=== PATIENT | female | born 1985 | race Caucasian/White ===

== ENCOUNTER 2023-09-24 16:07 | Outpatient (CLI) | payer OTHER, SELFPAY | END 2023-09-24 16:08 | disposition home or self-care (01) | PROVIDERS: PCP Nurse Practitioner Family; Visit Provider Nurse Practitioner Family | DX: N92.1 Excessive and frequent menstruation with irregular cycle (principal); Z13.29 Encounter for screening for other suspected endocrine disorder | CPT/HCPCS: 84443; 85025 ==

== ENCOUNTER 2023-09-30 15:47 | Outpatient (CLI) | payer OTHER, SELFPAY ==
--- NOTE | 2023-09-30 16:00 | CRLHL7_ITS ---
For Patients: As a result of the Century Cures Act, medical imaging exams and procedure reports are released immediately into your electronic medical record. You may view this report before your referring provider. If you have questions, please contact your health care provider. INDICATION: Menometrorrhagia COMPARISON: none TECHNIQUE: 2D fuller scale and color Doppler images were acquired of the pelvis using a transabdominal and transvaginal approach. FINDINGS: Sonographic images demonstrate a normal size and smooth outer contour of the uterus. Uterus measures 9.6 cm in length by 5.5 cm in AP diameter by 6.6 cm in transverse dimension. Small posterior uterine fibroid measures 1.6 x 1.2 x 1.8 cm. Essure devices are present. The endometrial lining appears normal and measures 6 mm in composite thickness. The right ovary measures 3.2 x 2.0 x 2.3 cm in size and the left ovary measures 4.6 x 3.0 x 3.0 cm. The ovaries demonstrate normal arterial and venous blood flow on color Doppler analysis. There are no suspicious fluid collections within the cul-de-sac. Simple cyst is present within the left ovary measuring 2.3 x 2.4 cm. IMPRESSION: Endometrial thickness 6 millimeters. No endometrial fluid. Small posterior intramural fibroid measuring 1.8 cm. Simple left ovarian cyst measuring 2.4 cm. No ovarian torsion or excess pelvic free fluid. Dictated by Jeff Whitaker MD @ 10/01/2023 1:24:25 PM (Electronically Signed)
== END 2023-09-30 15:48 | disposition home or self-care (01) ==
PROVIDERS: PCP Nurse Practitioner Family; Visit Provider Nurse Practitioner Family
DX: N92.1 Excessive and frequent menstruation with irregular cycle (principal); R93.89 Abnormal findings on diagnostic imaging of other specified body structures; D25.1 Intramural leiomyoma of uterus; N83.202 Unspecified ovarian cyst, left side
CPT/HCPCS: 76830; 76856; 93976

== ENCOUNTER 2023-10-14 15:40 | Outpatient (CLI) | payer OTHER, SELFPAY ==
--- NOTE | 2023-10-14 16:00 | US_ITS ---
Patient: RENETTA BAXTER Facility:?[facility] Patient ID:?[id number] Site Patient ID:?[id number]. Site :?[id number] Study:?US-Thyroid -10/14/2023 4:08:33 PM Ordering Physician:?ANDRES FLORES Final Report: INDICATION: Thyromegaly COMPARISON: none TECHNIQUE: Mejia scale and color Doppler images were acquired of the thyroid gland. FINDINGS: The thyroid is heterogeneous in echotexture. There is a solid and cystic nodule in the upper pole of the left thyroid lobe measuring 4 x 3 x 4 millimeters. Additional solid and cystic nodule left thyroid lobe measures 1.7 x 0.9 x 1.0 cm. Heterogeneous nodule right thyroid lobe in the midportion measuring 9 x 5 x 6 millimeters is present. Solid and cystic nodule midportion right thyroid lobe measures 1.4 x 0.8 x 1.2 cm. The right lobe measures 5.5 x 1.5 x 1.7 cm and the left lobe measures 5.6 x 1.1 x 1.6 cm in size. Isthmus measures 2 millimeters. The color Doppler images demonstrate normal vascularity. There is no evidence of cervical lymphadenopathy or parathyroid mass. IMPRESSION: Heterogeneous thyroid with multiple TR 3 nodules. Follow-up in 1 year recommended. Dictated by Jeff Whitaker MD @ 10/15/2023 11:13:44 AM Signed by:?Jeff Whitaker MD @10/15/2023 11:13:44 AM (Electronic Signature)
== END 2023-10-14 15:41 | disposition home or self-care (01) ==
LOC: US 15:41
PROVIDERS: PCP Nurse Practitioner Family; Visit Provider Nurse Practitioner Family
DX: E01.0 Iodine-deficiency related diffuse (endemic) goiter (principal)
CPT/HCPCS: 76536

== ENCOUNTER 2023-12-04 12:32 | Outpatient (CLI) | payer OTHER, SELFPAY | END 2023-12-04 12:33 | disposition home or self-care (01) | LOC: KYNREF 12:33 | PROVIDERS: PCP Nurse Practitioner Family; Visit Provider Nurse Practitioner Family | DX: Z13.228 Encounter for screening for other metabolic disorders (principal) | CPT/HCPCS: 80048 ==

== ENCOUNTER 2023-12-17 09:04 | Day surgery (SDC) | payer OTHER, SELFPAY ==
[2023-12-17] VITALS (23 sets, daily range): BP systolic 96–124; BP diastolic 58–83; PULSE 60–79; RESP 14–18; TEMP 35.8–37.2; O2SAT 95–100; BMI 24.7
[2023-12-17] MEDS: LACTATED RINGERS 1000 ML 1,000 ML 100 ML IV ×4 (09:20→21:53)
[2023-12-17 09:54] LABS: Basophils Absolute Auto 0.02 K/uL (0.00-0.30); Basophils Percent Auto 0.4 % (0.0-3.0); Eosinophils Absolute Auto 0.06 K/uL (0.00-0.50); Eosinophils Percent Auto 1.2 % (0.0-7.0); Hematocrit 43.2 % (33.0-51.0); Hemoglobin* 14.1 gm/dL (12.0-16.0); Immature Granulocytes Abs Auto 0.01 K/uL (0.00-0.30); Immature Granulocytes Pct Auto 0.2 %; Lymphocytes Percent Auto 16.9 % (20-44); Mean Corpuscular HGB Conc 33 gm/dL (32-36); Mean Corpuscular Hemoglobin 30 pg (26-34); Mean Corpuscular Volume 92 fL (80-100); Monocytes Percent Auto 7.8 % (0.0-11.0); Neutrophils Percent Auto 73.5 % (42.0-72.0); Platelet Count* 200 K/uL (140-440); RDW Coefficient of Variation % 12.5 % (11.5-15.5); Red Blood Count 4.68 m/uL (4.00-5.20)
[2023-12-17 09:55] LABS: Ur HCG Qualitative* Negative (Negative)
[2023-12-17 10:01] LABS: Slide Review Reflex No
--- NOTE | 2023-12-17 10:05 | W.PM.H&PU ---
History & Physical Update History & Physical Update H&P Reviewed and patient assessed: No changes noted
[2023-12-17 10:15] LABS: Creatinine* 0.7 mg/dL (0.5-1.5); Est. Creatinine Clearance* 108.85; Estimated Glomerular Filt Rate 113 ml/min
--- NOTE | 2023-12-17 11:41 | W.PM.NB ---
Nerve Block Nerve Block Time Seen by Provider: 11:30 Date Seen: 12/17/23 Type of block requested by surgeon for post-operative analgesia: TAP Side: bilateral Time out performed: Yes Verification of patient name: Yes Verification of date of : Yes Site marking: site marked Name of person performing procedure: Jose R Continuous monitoring Was continuous monitoring of O2 sat, B/P, air sampling and monitoring, recorded every 15 minutes?: Yes Procedure Checklist: sterile prep, needles and gloves Ultrasound guided. Images saved: Yes Medications given in 5ml increments after negative aspiration: Marcaine %: 0.25 mL: 30 Needle gauge: 20 and Exparel mL: 10 Patient tolerated procedure well: Yes Additional comments: Needle noted between internal oblique and transversus abdominus. Local spread visualized Block Charges Block Charge (with Pro Fee): TAP Bilateral Use of Ultrasound Machine for Block: Yes- US Guidance/pain block
[2023-12-17] MEDS: CEFAZOLIN 2 GM INJ IVP (11:47)
--- NOTE | 2023-12-17 12:14 | SUR.OPER ---
PATIENT QUESTIONS ANSWERED SATISFACTORILY PREOPERATIVELY. PATIENT BROUGHT TO OR #3 PER CART. Patient positioned supine on OR #3 bed for the intubation. Pt. then moved into the lithotomy position for the procedure. Perioperative team padded and tucked the arms at pt. side. Final approval of positioning by surgeon.
--- NOTE | 2023-12-17 12:27 | W.ANESCHARGE ---
Anesthesia Charges Start Date/Time Anesthesia Start Date: 12/17/23 Anesthesia Start Time: 11:23 Stop Date/Time Anesthesia Stop Date: 12/17/23 Anesthesia Stop Time: 14:34
--- NOTE | 2023-12-17 14:37 | W.ANESCHARGE ---
Anesthesia Charges Start Date/Time Anesthesia Start Date: 12/17/23 Anesthesia Start Time: 11:23 Stop Date/Time Anesthesia Stop Date: 12/17/23 Anesthesia Stop Time: 14:34
[2023-12-17] MEDS: fentaNYL 100 MCG/2 ML inj 50 MCG IVP ×2 (14:46→14:53)
[2023-12-17] MEDS: ONDANSETRON 2 MG/ML inj 4 MG IVP ×3 (14:49→23:57)
--- NOTE | 2023-12-17 14:59 | PM.GYNPRHY ---
Procedure Type of Hysterectomy: Total Laparoscopic Pre-op/Post-op diagnoses: Pre-Op/Post-Op Diagnoses Operation Date: 12/17/23 11:10 <No data on this case meets the specified criteria> Procedure: Procedures Operation Date: 12/17/23 11:10 Actual Procedure Side Surgeon p M/S-Total Laparoscopic Hysterectomy, Bilateral Salpingectomy, Cystoscopy Elaine Dumont MD Case Resolution Specialist: Hilaria Walker Estimated blood loss (mL): 75 Anesthesia Type: General and TAP Block Complications: none Fluids: crystalloid Fluid amount (mL): 1,800 Urine output (mL): 1,000 Weight of Uterus: 5.291 oz Specimen: uterus (with cervix), left tube and right tube Disposition: floor Narrative: PREOPERATIVE DIAGNOSIS: 1. Abnormal uterine bleeding 2. Pelvic pain POSTOPERATIVE DIAGNOSIS: 1. Abnormal uterine bleeding 2. Pelvic pain TITLE OF OPERATION: 1. Total laparoscopic hysterectomy with bilateral salpingectomy 2. Cystoscopy Drains: Avery to gravity Specimen: Uterus and bilateral fallopian tubes to pathology. FINDINGS: Findings: On exam under anesthesia: The uterus was anteverted, approximately 7 week size, palpates globally bulky with posterior fibroid. Adnexa without mass or fullness palpable. On laparoscopy: Small posterior fibroid. Left corpus luteum cyst noted. Appendix surgically absent. Liver and gallbladder all appeared normal. Cystoscopy: Intact bladder with no retained sutures or injuries. Bilateral ureteral efflux noted. COMPLICATIONS: None PROCEDURE IN DETAIL: Patient was taken to the operating room with IV running. She received cefazolin in preoperative prophylaxis. She was positioned in dorsal lithotomy position with her legs fully supported in Yellofin stirrups. General anesthesia was administered and she received a TAP block. She was prepped and draped in the usual sterile fashion. Pelvic exam under anesthesia was performed for the above-noted findings. Speculum was inserted. Cervix visualized and grasped along its anterior lip with a single-tooth tenaculum. Cervix was dilated with Hegar dilators to accommodate the VCare uterine manipulator. A medium sized colpotomizer cup was selected. The tip of the uterine manipulator was inserted through the cervix into the uterine cavity and the balloon was inflated. The speculum was removed. The colpotomy cup was advanced, surrounding the cervix, and the proximal occluder was moved up along the shaft of the VCare and fixed in place. Avery catheter was placed. Patient's legs were then placed in neutral position. Attention was turned to patient's abdomen. A 5 mm infraumbilical incision was made with a scalpel and carried down to the underlying layer of fascia with the hemostat. 5 mm camera was placed within the 5 mm Fios Kii trocar, and advanced under direct visualization through the anterior abdominal wall into the peritoneal cavity, while tenting up the anterior abdominal wall. The trocar was removed. The balloon was inflated, holding the port in place. Pneumoperitoneum was achieved. Survey of the abdomen and pelvis revealed the above-noted findings. Three additional port sites were created. The first was in the patient's left lower quadrant, just superomedial to the left ASIS. The second was a hand's breadth superior to and slightly medial to the first. The third was in the patient's right lower quadrant, just superomedial to the right ASIS. An 11 mm incision was made in the left lower quadrant, and a 5 mm incision was made at the other 2 sites, after assuring that large vessels were out of harm's way. A 10 mm Fios Kii port was inserted at the left lower quadrant site, and a 5 mm Fios Kii port at each of the other 2 sites, under direct visualization and without complication. The balloon on each of the four ports was inflated, holding each in place. Attention was first turned to the left fallopian tube, which was divided from the mesosalpinx, using the LigaSure proceeding laterally to medially, and the tube was amputated at the left uterine cornua. This was removed through the port site and sent to pathology. This procedure was repeated on the patient's right side, and the right fallopian tube was also amputated at the cornua and removed from the patient's abdomen. This was also sent to pathology for further analysis. The left round ligament was cauterized and transected with the LigaSure. The utero-ovarian ligament was cauterized and transected, and the remnants of the right broad ligament were cauterized and transected between these two structures. The bladder flap was created on the patient's left side, moving laterally to medially. The left uterine artery was cauterized and transected with the LigaSure. Using the colpotomizer cup as a guide, the peritoneum and underlying stroma was dissected off the anticipated site of colpotomy over the posterior vaginal fornix. Attention was then turned to the right side of the uterus, where the right round ligament was cauterized and transected with the LigaSure. The right utero-ovarian ligament was cauterized and transected, and the remnants of the right round ligament were cauterized and transected between these two structures. The bladder flap was created on the patient's right side, and dissection was carried laterally to medially, meeting the dissection where it had left off from the patient's right side. The right uterine artery was cauterized and transected with the LigaSure. The bladder reflection was moved well below the colpotomizer cup anteriorly. The Ligasure Kulara Waterlab pen with the spatula attachment was then used to perform the colpotomy incising around the VCare cup. The uterus was pulled into the patient's vagina, maintaining the pneumoperitoneum. The vaginal cuff was then reapproximated using 2-0 V lock suture in a running manner. Ports were left in place but all instruments were removed and pneumoperitoneum was released. Patient's legs were placed back in lithotomy position. The uterus was removed from the vagina and was sent to pathology for further analysis. Speculum and bimanual exam was performed, showing an intact cuff with no obvious active bleeding. The Avery catheter was removed from the bladder, and the cystoscope was assembled with saline inflow, outflow, and light cord in place. The patient was given IV methylene blue prior to the cystoscopy. Cystoscope was advanced through the urethra into the bladder, and survey of the mucosa revealed a normal appearance. The bladder dome was intact. Bilateral ureteral jets were noted. Cystoscope was removed and Avery catheter replaced. Patient's legs were again placed in neutral position. Insufflator was reattached to the port and pneumoperitoneum again achieved. Survey of the pelvis revealed hemostasis. Attention was then returned to the abdomen where hemostasis was verified. Gilbert was applied to the vaginal cuff. The CO2 pressure decreased to 8mmHG and hemostasis verified. The fascia in the LLQ incision was approximated with 0-Vicryl suture using the Billy Lam fascial closure device. This was closed under direct visualization with the laparoscope. Procedure was deemed complete. The balloons of all remaining port sites were deflated, and all ports were removed after pneumoperitoneum was released. The skin of each port site was closed in a subcuticular fashion with 4 0 Monocryl. Surgical glue was applied above this. Patient tolerated procedure well and was taken to recovery area in stable condition.
[2023-12-17] MEDS: OXYCODONE 5 MG TABLET PO ×2 (15:31→21:44)
[2023-12-17] MEDS: SODIUM CHLORIDE 0.9 % (FLUSH) 10 ML SYRINGE IVF ×2 (16:49→23:57)
[2023-12-17] MEDS: hydrOXYzine pamoate 25 MG CAPSULE PO (16:49)
[2023-12-17] MEDS: IBUPROFEN 600 MG TABLET PO ×2 (17:25→21:42)
[2023-12-17] MEDS: ACETAMINOPHEN 325 MG TABLET 650 MG PO (18:22)
--- NOTE | 2023-12-17 18:35 | PC.NURSE ---
End of Shift: Patient is cooperative and calm. Patient arrived to the floor 1520. Patient vitally stable, lung sounds clear, BS active. IV running LR @100. Patient reports pain 7-4/10, PRN Tylenol, Oxycodone, and one time dose of Hydroxyzine given. Zofran given once for nausea. Patient taking in liquids, but declines to eat anything. Avery intact and draining, blue urine. Abdominal lap sites x4 c/d/i.
[2023-12-17] MEDS: SERTRALINE 100 MG TABLET 200 MG PO (21:42)
[2023-12-18 04:00] VITALS: BP 118/77; PULSE 68; RESP 16; TEMP 36.9; O2SAT 99
[2023-12-18] MEDS: IBUPROFEN 600 MG TABLET PO ×2 (04:07→10:06)
[2023-12-18] MEDS: OXYCODONE 5 MG TABLET PO ×2 (04:09→10:06)
--- NOTE | 2023-12-18 05:28 | PC.NURSE ---
Addendum entered by Jo Meadows RN 12/18/23 06:57: Pt up to BR, urinated 300cc, tolerated ambulation without difficulty, denies lightheaded/dizziness. Original Note: [id number] Pt pleasant and cooperative, pain controlled with scheduled and prn pain medication. Avery removed during the night approx 0100, has not urinated yet. no PO intake, jello at bedside, poor appetite noted, some nausea present, prn zofran administered with relief, educated pt on anaesthesia side effects, importance of eating for healing and nausea relief, pt acknowledged understanding. pt standing at bedside, tolerated activity well. Ice applied to abdomen, lap sites C/D/I.
[2023-12-18 06:29] LABS: Creatinine* 0.6 mg/dL (0.5-1.5); Est. Creatinine Clearance* 126.99; Estimated Glomerular Filt Rate 117 ml/min
[2023-12-18 07:00] VITALS: BP 112/73; PULSE 65; RESP 16; O2SAT 97
--- NOTE | 2023-12-18 08:37 | P.DS_ITS ---
DS: Providers Provider Time Seen by Provider: 08:37 Date Seen: 12/18/23 Date of admission: 12/17/2023 Primary care physician: Paola No, COMMUNICATION CONSULTANT, [employer] Admitting Clinician: Elaine Dumont MD Attending Physician on discharge: Fausto Moyer MD DS: Diagnosis Discharge Diagnosis (1) Status post laparoscopic hysterectomy: Status: Acute PAWN SHOP KEEPER-Discharge Summary Hospital Course Hospital Course Narrative: Hospital Course: Elijah was admitted to the hospital on 12/17/2023 for a scheduled total laparoscopic hysterectomy/bilateral salpingectomy/diagnostic cystoscopy. Her surgery was uncomplicated. Her postoperative course was also uncomplicated. By postoperative day 1, she was tolerating a regular diet, ambulating without difficulty, passing flatus and pain was well controlled with oral pain medications. She would like to be discharged home today. Labs: Preoperative hemoglobin 14.1, postoperative hemoglobin 12.0. Objective: General: Alert and oriented x3. Pleasant, woman in no acute distress. Vital signs: See EMR. Heart: Regular rate and rhythm without gallop, rub or murmur. Chest: Clear to auscultation bilaterally. Abdomen: Soft, nontender, nondistended with normal bowel sounds throughout. No CVA or flank tenderness. Incision(s): Clean, dry and intact w/ sutures and skin adhesive. Pelvic: Minimal vaginal bleeding, remainder of pelvic exam deferred. Extremities: No pain, edema, cyanosis or clubbing. Assessment: A 38-year-old postoperative day 1 from a total laparoscopic hysterectomy/bilateral salpingectomy/diagnostic cystoscopy doing well. Plan: 1. Discharge home today. 2. Activity restrictions reviewed with the patient. 3. Return to clinic to see Dr. Dumont for a postoperative visit in 2-3 weeks. Time Spent with Patient Time attestation: Total time spent providing and/or coordinating discharge services: PAWN SHOP KEEPER - Exam Physical Exam: Vital signs: Temp Pulse Resp BP Pulse Ox O2 Del Method 98.5 F 68 16 118/77 99 Room Air 12/18/23 04:00 12/18/23 04:00 12/18/23 04:00 12/18/23 04:00 12/18/23 04:00 12/18/23 04:00 PAWN SHOP KEEPER - DS: Data Data Completed and Pending Labs on day of discharge: Labs from last 24 hours 12/18/23 12/17/23 12/17/23 05:42 Unknown 09:46 WBC 5.10 RBC 4.68 Hgb 12.0 14.1 Hct 43.2 MCV 92 MCH 30 MCHC 33 RDW Coeff of Carmita 12.5 Plt Count 200 Neut % (Auto) 73.5 H Lymph % (Auto) 16.9 L [place] % (Auto) 7.8 Eos % (Auto) 1.2 Baso % (Auto) 0.4 Neut # (Auto) 3.70 Lymph # (Auto) 0.90 [place] # (Auto) 0.40 Eos # (Auto) 0.06 Baso # (Auto) 0.02 Abs Immat Gran (auto) 0.01 Imm/Tot Granulo (auto) 0.2 Creatinine 0.6 0.7 Estimated Creat Clear 126.99 108.85 Estimated GFR 117 113 Urine HCG, Qual Negative Blood Type B Positive Antibody Screen NEGATIVE Procedures Procedures: Procedures Operation Date: 12/17/23 11:10 Actual Procedure Side Surgeon p M/S-Total Laparoscopic Hysterectomy, Bilateral Salpingectomy, Cystoscopy Elainerob Dumont MD Complications: none Discharge Plan Discharge Disposition: Home w/ Parent or Adult Discharging Surgeon: Alejandra Moyer Follow-Up Appointment: 01/01/24 Prescriptions: New docusate sodium 100 mg Capsule 100 mg PO BID PRN (Reason: Constipation) 30 Days Qty: 60 0RF ibuprofen 600 mg Tablet 600 mg PO Q6H 30 Days Qty: 120 0RF simethicone 80 mg Tablet,Chewable 160 mg PO Q4H PRN (Reason: gas) 30 Days Qty: 60 0RF oxycodone 5 mg Tablet 5 mg PO Q6H PRN (Reason: Moderate Pain) 14 Days Qty: 20 0RF acetaminophen 500 mg tablet 1,000 mg PO Q6H PRN30 Days Qty: 60 0RF Continued trazodone 100 mg tablet 100 mg PO QHS PRN (Reason: insomnia) 90 Days Qty: 90 3RF sertraline [Zoloft] 100 mg tablet 200 mg PO HS Discharge Diet: Regular Additional Instructions: LAPAROSCOPY POSTOPERATIVE INSTRUCTIONS ACTIVITY No heavy lifting/pushing/pulling for 4-6 weeks. Do not lift anything more than about 15 lbs (such as laundry, groceries, children, pets), vacuum, push heavy doors or grocery carts, etc. You may climb stairs as tolerated. Do not put anything in the vagina for 6-8 weeks after surgery unless otherwise instructed by your doctor (including tampons, douching, sexual intercourse, etc). No driving for about 2 weeks after surgery, while you are taking narcotic pain medication, or until you feel that you are ready. Practice checking your blind spot and stepping hard on the brake. Avoid sitting or lying in bed for more than 2 hours at a time while you are awake to reduce your risk of blood clots. You may return to work when directed by your physician. Please contact your doctor if you need any return to work letters or medical leave paperwork to be completed. WOUND CARE You will have 4 small incisions on your abdomen. There will be dissolvable stitches under your skin that do not need to be removed. Shower daily after surgery. Clean your incision with mild antibacterial soap and water. Pat your incision dry with a clean towel. No tub baths until wound is completely healed. Wash your hands frequently, especially before touching your incision, changing any dressings, after using the restroom, and before eating. PAIN MANAGEMENT Take your oral pain medication as needed. You should be taking Ibuprofen 600mg every 6 hours with 1000 mg of Tylenol every 6 hours. You can take these together every six hours or alternate them every 3 hours. You should then take the oxycodone as needed if you have breakthrough pain on top of the Tylenol and Ibuprofen. Some pain medications can cause constipation so you should take a stool softener (i.e. colace/senna) while you are on these medications. You may also take milk of magnesia or Miralax for constipation. WHAT TO EXPECT AT HOME Recovery from surgery is generally 2-4 weeks, but sometimes longer for more strenuous activity. It is normal to be very tired during this time. It is normal to have some drainage or a small amount of vaginal bleeding after surgery which may last up to 8 weeks. You may go home with a oglesby catheter in your bladder. If so, you will need to follow up for a nurse visit in 7-10 days for removal. You will most likely experience gas pain, abdominal swelling, or shoulder pain for 24-72 hours after surgery. This is from the carbon dioxide gas put into your abdomen to better visualize your organs. A warm shower, heating pad, and/or walking may help. WHEN TO CALL YOUR DOCTOR : Fever (>100.4?F or 38.0?C) or chills. Incision problems such as redness, warmth, swelling, or foul-smelling drainage. Severe nausea or persistent vomiting. Bright red vaginal bleeding (soaking >1 pad/hour) or foul-smelling vaginal drainage. Severe pain not relieved with pain medication. Pain and swelling in your legs, especially if it is only on one side and not the other. Pain with urination, cloudy urine, or foul-smelling urine. Or if you have any other problems or questions. CALL 911 OR GO TO THE EMERGENCY ROOM IF YOU HAVE: Any shortness of breath, difficulty breathing, or chest pain. Follow-up: Elaine Dumont MD [Staff Physician] - Paola No APRN, [employer] [Primary Care Provider] - Discharge Orders: Discharge Order (Routine); Ordered 12/18/23 Ordered By: Alejandra Moyer
--- NOTE | 2023-12-18 12:36 | PC.NURSE ---
Discharge: The patient discharged home with her . The patient tolerated jello this morning with no N/V. All discharge instructions were reviewed with the patient and her . IV was removed. 4 lap sites CDI w/ glue. ADONAY NUGENT BSN
== END 2023-12-18 12:23 | disposition home or self-care (01) ==
LOC: OR 09:06 → MEDSURG 09:08
PROVIDERS: PCP Nurse Practitioner Family; Visit Provider Obstetrics & Gynecology
PROC: 0UT94ZZ Resection of Uterus, Percutaneous Endoscopic Approach (ICD-10-PCS; CPT 58571; principal; 2023-12-17 11:00)
DX: N93.8 Other specified abnormal uterine and vaginal bleeding (principal); R10.2 Pelvic and perineal pain; D25.1 Intramural leiomyoma of uterus; D25.0 Submucous leiomyoma of uterus; D25.2 Subserosal leiomyoma of uterus; G89.18 Other acute postprocedural pain
CPT/HCPCS: 58571; 00840; 36415; 64488; 76942; 81025; 82565; 85018; 85025; 86850; 86900; 86901; 88307; A9270; C9290; J0330; J0665; J0690; J1100; J1630; J1885; J1940; J2250; J2405; J2704; J3010; J3475; J3490; J7120

== ENCOUNTER 2023-12-28 14:54 | Outpatient (CLI) | payer OTHER, SELFPAY | END 2023-12-28 14:55 | disposition home or self-care (01) | LOC: NFLDREF 12-30 07:08 | PROVIDERS: PCP Nurse Practitioner Family; Referring Provider Nurse Practitioner Family; Visit Provider Obstetrics & Gynecology | DX: R39.198 Other difficulties with micturition (principal) | CPT/HCPCS: 87086 ==

== ENCOUNTER 2024-01-01 11:53 | Day surgery (SDC) | payer OTHER, SELFPAY ==
[2024-01-01 12:08] VITALS: BP 119/80; PULSE 79; RESP 14; TEMP 37; O2SAT 97; BMI 24.3
--- NOTE | 2024-01-01 12:19 | ED.GENADULT ---
HPI - General Adult General Time Seen by Provider: 12:31 Date Seen: 01/01/24 Chief complaint: Post Op Complication Stated complaint: bleeding post op Time Seen by Provider: 01/01/24 12:18 Source: patient and RN notes reviewed Mode of arrival: ambulatory Limitations: no limitations History of Present Illness HPI narrative: Patient is a 38-year-old female who had a hysterectomy and bilateral salpingectomy done on December [address] Dumont. She was having reported fevers and bleeding vaginally and went to the office on December 27. Her white blood count was 5100, hemoglobin 14.1, platelet counts 200,000 at that visit. There was concern of some vaginal cuff cellulitis. She did go on Augmentin. Patient notes she had fever on Thursday. She has had none since then. She slept in until 11:00 a.m.. When she got up she had a gush of blood, notes that there was trailing of blood into the bathroom. She did call into the clinic and was of eyes to come in. She has had some lower pelvic cramping and bleeding. She has had no fevers in the interim. She is having pain that is more problematic in the left lower port site, this was also noted on her office visit on December 27. Patient is not feeling lightheaded or dizzy, no symptoms suggestive of severe acute blood loss on questioning. Related Data Home Medications Medication Instructions Recorded Confirmed sertraline 100 mg tablet (Zoloft) 200 mg PO HS 12/17/23 01/01/24 Previous Rx's Medication Instructions Recorded trazodone 100 mg tablet 100 mg PO QHS PRN insomnia 90 days 12/30/22 #90 tabs acetaminophen 500 mg tablet 1,000 mg (2 x 500 mg) PO Q6H PRN 12/17/23 30 days #60 tabs docusate sodium 100 mg capsule 100 mg PO BID PRN Constipation 30 12/17/23 days #60 caps ibuprofen 600 mg tablet 600 mg PO Q6H 30 days #120 tabs 12/17/23 oxycodone 5 mg tablet 5 mg PO Q6H PRN Moderate Pain 14 12/17/23 days #20 tabs simethicone 80 mg chewable tablet 160 mg (2 x 80 mg) PO Q4H PRN gas 12/17/23 30 days #60 tabs amoxicillin 500 mg-potassium 1 tab PO Q12H 10 days #20 tabs 12/28/23 clavulanate 125 mg tablet (Augmentin) Allergies Allergy/AdvReac Type Severity Reaction Status Date / Time No Known Allergies Allergy Unknown Unknown Verified 01/01/24 12:07 Review of Systems Status of ROS: Reports: 6 or more systems reviewed and unremarkable except as noted in History and below PFSH PFSH Surgical History Status post laparoscopic hysterectomy (12/17/23) ?Z90.710 - Acquired absence of both cervix and uterus (ICD-10) History of wisdom tooth extraction ?K08.409 - Partial loss of teeth, unspecified cause, unspecified class (ICD-10) History of cholecystectomy ?Z90.49 - Acquired absence of other specified parts of digestive tract (ICD-10) History of appendectomy ?Z90.49 - Acquired absence of other specified parts of digestive tract (ICD-10) Family History Sister Thyroid dysfunction Other Anxiety disorder Depression Diabetes Leukemia Social History Narrative: . 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 No illicit drug use. Non-smoker. What is your current living situation?: I presently have a place to live Problems where you live: no known problems In the past 12 months, utilities in danger of being shut off: no In past 12 months, lack of transportation kept you from medical appts, meetings, work, or getting things needed for daily living: no In the past 12 mos, have been you worried that your food would run out before you had money to buy more?: never true In the past 12 mos, the food you bought just didn't last and you didn't have money to buy more?: never true Smoking Status: Never smoker How often do you have a drink containing alcohol: never AUDIT-C Alcohol total score: 0 Non-prescribed substance use: denies use How often does anyone, including family, friends and others, physically hurt you: never How often does anyone, including family, friends and others, insult or talk down to you: never How often does anyone, including family, friends and others, threaten you with harm: never How often does anyone, including family, friends and others, scream or curse at you: never Little interest or pleasure in doing things: nearly every day Feeling down, depressed, or hopeless: more than half the days Exam Const: Vital Signs, click to edit/add: Vital Signs - 24 hr 01/01/24 12:08 Temperature 98.6 F Pulse Rate [Pulse Oximeter] 79 Respiratory Rate 14 Blood Pressure [Ri ght Upper Arm] 119/80 Pulse Oximetry 97 Oxygen Delivery Me thod Room Air Patient is alert, interactive, no apparent distress. Sclera clear, conjugate gaze. Lungs are clear, good air entry, no wheeze or crackles. CV regular rate and rhythm, no murmur. Her 3 port sites on her abdomen are clean dry and intact, there is no erythema or swelling, no fluctuance. She is more so tender over the left lower quadrant run but there is no visible changes to the wound. She has mild suprapubic tenderness but most of her pain centers over this left lower quadrant. Patient was ambulatory into the ED of her own accord. Documenting provider has reviewed patient's vital signs: yes Course Course ED Course: Will get baseline labs, have reviewed with patient that he need to speak with Dr. Dumont. We discussed that she needs to speculum exam but rather than doing multiple of them, I will speak with her 1st. I am not sure if she is going to want imaging or not. Will see what her surgeon has to say at this point. The bleeding could be from surgical complications or infection. She does not seem like she is actively bleeding at this time. Consultations Consultation #1: Spoke with Dr. Dumont, she will be over to do an exam. Agreed with one speculum exam for patient comfort and safety. She did subsequently find that the patient had popped a stitch. Patient reportedly was constipated last night and this is likely when it happened. There were reportedly clots up at the apex of the vaginal cough and a loss of the stitch was noted. Will have nursing staff place an IV, start some maintenance lactated Ringer's. Patient reportedly has been NPO since last night. Dr. Dumont will need to take this patient back to the OR to replace the stitch in the vaginal cuff. Time: 12:41 Vital Signs Vital signs: Initial Vital Signs Temperature 98.6 F 01/01/24 12:08 Temperature Source Temporal Artery Scan 01/01/24 12:08 Pulse Rate 79 01/01/24 12:08 Pulse Rhythm Regular 01/01/24 12:08 Respiratory Rate 14 01/01/24 12:08 Blood Pressure 119/80 01/01/24 12:08 Blood Pressure Mean 93 01/01/24 12:08 Blood Pressure Position Sitting 01/01/24 12:08 Pulse Oximetry 97 01/01/24 12:08 Oxygen Delivery Method Room Air 01/01/24 12:08 Vital Signs Temperature 98.6 F 01/01/24 12:08 Pulse Rate 79 01/01/24 12:08 Respiratory Rate 14 01/01/24 12:08 Blood Pressure 119/80 01/01/24 12:08 Pulse Oximetry 97 01/01/24 12:08 Oxygen Delivery Method Room Air 01/01/24 12:08 Temperature 98.6 F 01/01/24 12:08 Pulse Rate 79 01/01/24 12:08 Respiratory Rate 14 01/01/24 12:08 Blood Pressure 119/80 01/01/24 12:08 Pulse Oximetry 97 01/01/24 12:08 Oxygen Delivery Method Room Air 01/01/24 12:08 Medications Administered Medications: Generic Name Dose Route Start Last Admin Trade Name Freq PRN Reason Stop Dose Admin Lactated Ringer's 1,000 mls @ 125 mls/hr 01/01/24 13:05 01/01/24 13:24 Lactated Ringers 1000 Ml IV 125 mls/hr .Q8H YUSRA Administration Medical Decision Making Lab Data Lab results reviewed: Yes I reviewed the patient's lab results Labs: Lab Results 01/01/24 Range/Units 13:15 WBC 6.25 (4.50-11.00) K/uL RBC 4.33 (4.00-5.20) m/uL Hgb 13.1 (12.0-16.0) gm/dL Hct 39.8 (33.0-51.0) % MCV 92 (80-100) fL MCH 30 (26-34) pg MCHC 33 (32-36) gm/dL RDW Coeff of Carmita 12.3 (11.5-15.5) % Plt Count 236 (140-440) K/uL Neut % (Auto) 75.8 H (42.0-72.0) % Lymph % (Auto) 13.6 L (20-44) % [facility] % (Auto) 7.0 (0.0-11.0) % Eos % (Auto) 2.4 (0.0-7.0) % Baso % (Auto) 0.6 (0.0-3.0) % Neut # (Auto) 4.70 (1.7-7.0) K/uL Lymph # (Auto) 0.90 (0.90-2.90) K/uL [facility] # (Auto) 0.40 (0.00-0.90) K/UL Eos # (Auto) 0.15 (0.00-0.50) K/uL Baso # (Auto) 0.04 (0.00-0.30) K/uL Abs Immat Gran (auto) 0.04 (0.00-0.30) K/uL Imm/Tot Granulo (auto) 0.6 % Sodium 143 (135-149) mmol/L Potassium 3.9 (3.6-5.1) mmol/L Chloride 109 (96-114) mmol/L Carbon Dioxide 30 (20-32) mmol/L Anion Gap 4 L (7-15) mEq/L BUN 12 (5-24) mg/dL Creatinine 0.7 (0.5-1.5) mg/dL Estimated Creat Clear 108.85 Estimated GFR 113 ml/min Glucose 87 (60-115) mg/dL Lactate 0.5 (0.5-1.9) mmol/L Calcium 9.3 (8.4-10.6) mg/dL C-Reactive Protein < 0.5 L (0.5-1.0) mg/dL Discharge Plan Discharge Clinical Impression: Postoperative vaginal bleeding Patient Disposition: XFER to OR Condition: Stable
--- NOTE | 2024-01-01 13:11 | P.GYNCN_ITS ---
HOME AND SCHOOL VISITOR - CN: HPI Data of Consult Time Seen by Provider: 13:11 Date Seen: 01/01/24 Primary Care Provider: Paola No, BODYBUILDER, WIRE DROPPER Consult Narrative Narrative: Elijah Amin is a 38 year old female underwent a laparoscopic hysterectomy and bilateral salpingectomy on 12/17/2023. She saw me on 12/28/23 for increased bleeding and malodorous discharge. Speculum exam showed some redness at the midline of the vaginal cuff. Due to the redness at the vaginal cuff and the malodorous discharge she was started on PO Augmentin. She presents to the ED today due abrupt onset of vaginal bleeding that was soaking through a pad. Elijah did not have a bowel movement for 4 days and had a large bowel movement yesterday. She subsequently went to bed and when she got out of bed she had an episode of vaginal bleeding. Endorses adhering to all postop instruction although her reports that she's been overdoing it with the activities. Reports resolution of the vaginal discharge after only a couple of days on Augmentin and was overall feeling much better until this episode of bleeding. Hgb/plt today: 13.1/236 WBC 6.25 cc:: CC: PFSH PFSH Surgical History Status post laparoscopic hysterectomy (12/17/23) ?Z90.710 - Acquired absence of both cervix and uterus (ICD-10) History of wisdom tooth extraction ?K08.409 - Partial loss of teeth, unspecified cause, unspecified class (ICD- 10) History of cholecystectomy ?Z90.49 - Acquired absence of other specified parts of digestive tract (ICD- 10) History of appendectomy ?Z90.49 - Acquired absence of other specified parts of digestive tract (ICD- 10) Family History Sister Thyroid dysfunction Other Anxiety disorder Depression Diabetes Leukemia Social History Narrative: . 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 No illicit drug use. Non-smoker. What is your current living situation?: I presently have a place to live Problems where you live: no known problems In the past 12 months, utilities in danger of being shut off: no In past 12 months, lack of transportation kept you from medical appts, meetings, work, or getting things needed for daily living: no In the past 12 mos, have been you worried that your food would run out before you had money to buy more?: never true In the past 12 mos, the food you bought just didn't last and you didn't have money to buy more?: never true Smoking Status: Never smoker How often do you have a drink containing alcohol: never AUDIT-C Alcohol total score: 0 Non-prescribed substance use: denies use How often does anyone, including family, friends and others, physically hurt you : never How often does anyone, including family, friends and others, insult or talk down to you: never How often does anyone, including family, friends and others, threaten you with harm: never How often does anyone, including family, friends and others, scream or curse at you: never Little interest or pleasure in doing things: nearly every day Feeling down, depressed, or hopeless: more than half the days Meds Home Medications and Allergies Home Medications Medication Instructions Recorded Confirmed Type sertraline 100 mg tablet (Zoloft) 200 mg PO HS 12/17/23 01/01/24 History Allergies Allergy/AdvReac Type Severity Reaction Status Date / Time No Known Allergies Allergy Unknown Unknown Verified 01/01/24 12:07 HOME AND SCHOOL VISITOR - Exam Physical Exam: Vital signs: Temp Pulse Resp BP Pulse Ox O2 Del Method 98.6 F 79 14 119/80 97 Room Air 01/01/24 12:01/01/24 12:01/01/24 12:01/01/24 12:01/01/24 12:01/01/24 12:08 Narrative: VITAL SIGNS: Stable. She is afebrile. GENERAL: She is alert and oriented times three in no acute distress. LUNGS: Unlabored breathing ABDOMEN: Soft, nontender, and nondistended. INCISION: Clean, dry and intact. Minimal tenderness on LLQ port. No erythema, induration, or drainage x4 PELVIC: Mons normal, clitoris normal, urethral meatus normal. Labia minora and majora normal in appearance bilaterally. Perineum and anus normal appearance. Vaginal introitus normal appearance. Vaginal vault with some dark red clots. Vaginal cuff tissue appears healthy and the redness previously noted had completely resolved. One line of suture did pull though on the right angle of the vaginal cuff causing a partial separation. The raw edge is the cause of the bleeding. EXTREMITIES: Without cyanosis, clubbing, or edema. NEUROLOGIC: Intact. Assessment and Plan Assessment and plan (1) Postoperative vaginal bleeding: Status: Acute Assessment and Plan: - I recommend exam under anesthesia and closure of the vaginal cuff separation to ensure hemostasis and good healing - Risks/benefits/and alternatives discussed with patient and consent signed - I re-emphasized strict adherence to postoperative restrictions and bowel regimen. - Plan: will proceed to OR
[2024-01-01 13:23] LABS: Lactate* 0.5 mmol/L (0.5-1.9)
[2024-01-01 13:24] LABS: Basophils Absolute Auto 0.04 K/uL (0.00-0.30); Basophils Percent Auto 0.6 % (0.0-3.0); Eosinophils Absolute Auto 0.15 K/uL (0.00-0.50); Eosinophils Percent Auto 2.4 % (0.0-7.0); Hematocrit 39.8 % (33.0-51.0); Hemoglobin* 13.1 gm/dL (12.0-16.0); Immature Granulocytes Abs Auto 0.04 K/uL (0.00-0.30); Immature Granulocytes Pct Auto 0.6 %; Lymphocytes Percent Auto 13.6 % (20-44); Mean Corpuscular HGB Conc 33 gm/dL (32-36); Mean Corpuscular Hemoglobin 30 pg (26-34); Mean Corpuscular Volume 92 fL (80-100); Neutrophils Percent Auto 75.8 % (42.0-72.0); Platelet Count* 236 K/uL (140-440); RDW Coefficient of Variation % 12.3 % (11.5-15.5); Red Blood Count 4.33 m/uL (4.00-5.20); White Blood Count* 6.25 K/uL (4.50-11.00)
[2024-01-01] MEDS: LACTATED RINGERS 1000 ML 1,000 ML 125 ML IV (13:24)
[2024-01-01 13:25] LABS: Slide Review Reflex No
[2024-01-01 13:39] LABS: Chloride* 109 mmol/L (96-114); Potassium* 3.9 mmol/L (3.6-5.1); Sodium* 143 mmol/L (135-149)
[2024-01-01 13:41] LABS: Creatinine* 0.7 mg/dL (0.5-1.5); Est. Creatinine Clearance* 108.85; Estimated Glomerular Filt Rate 113 ml/min
[2024-01-01 13:42] LABS: Anion Gap 4 mEq/L (7-15); Blood Urea Nitrogen* 12 mg/dL (5-24); Carbon Dioxide* 30 mmol/L (20-32); Glucose* 87 mg/dL (60-115)
[2024-01-01 13:43] LABS: Calcium* 9.3 mg/dL (8.4-10.6)
[2024-01-01 13:46] LABS: C Reactive Protein* < 0.5 mg/dL (0.5-1.0)
--- NOTE | 2024-01-01 14:09 | W.ANESCHARGE ---
Anesthesia Charges Start Date/Time Anesthesia Start Date: 01/01/24 Anesthesia Start Time: 13:36 Stop Date/Time Anesthesia Stop Date: 01/01/24 Anesthesia Stop Time: 14:11 Summary Emergency: MDA
[2024-01-01 14:10] VITALS: BP 124/79; PULSE 57; RESP 14; TEMP 36; O2SAT 97
--- NOTE | 2024-01-01 14:12 | P.ANES_ITS ---
Anesthesia Charges Start Date/Time Anesthesia Start Date: 01/01/24 Anesthesia Start Time: 13:36 Stop Date/Time Anesthesia Stop Date: 01/01/24 Anesthesia Stop Time: 14:11 Summary Emergency: MEDIA SALES EXECUTIVE
[2024-01-01 14:15] VITALS: BP 107/71; PULSE 56; RESP 14; O2SAT 97
--- NOTE | 2024-01-01 14:22 | P.GYNPRC_ITS ---
Procedure Note Time Seen by Provider: 14:22 Date of procedure: 01/01/24 Will [facility] bill your pro fee for this procedure?: Yes Procedure Description: PREOPERATIVE DIAGNOSIS: 1. Partial vaginal cuff separation at right corner (1 cm) POSTOPERATIVE DIAGNOSIS: 1. Partial vaginal cuff separation at right corner (1 cm) PROCEDURE(S): 1. EUA 2. Vaginal cuff repair SURGEON: Elaine Dumont MD ANESTHESIA:?MAC FINDINGS: Pelvic exam: Mons normal, clitoris normal, urethral meatus normal. Labia minora and majora normal in appearance bilaterally. Perineum and anus normal appearance. Vaginal introitus normal appearance. Vaginal pink and well rugated with scant white discharge. Vaginal cuff tissue appears healthy and the redness previously noted had completely resolved. One line of suture did pull though on the right angle of the vaginal cuff causing a partial separation. The raw edge is the cause of the bleeding. Rectal exam before and after the case was normal. No retained sutures. No defect. ESTIMATED BLOOD LOSS: <5 cc URINE OUTPUT: 75 cc COMPLICATIONS: None DESCRIPTION OF PROCEDURE: The patient was taken to the operating room where spinal anesthesia was administered. She was prepared and draped in normal sterile fashion in the dorsal lithotomy position in [facility], taking care to avoid lower extremity hyperextension, hyperflexion or compression. A surgical time-out was performed with the entire operative staff per protocol. Preoperative antibiotic: Patient currently on p.o. Augmentin, will continue until the course is complete. Pneumoboots were placed and activated. EUA revealed the above findings. Bladder was drained with a straight catheter. A weighted speculum and [place] were placed in the patient's vagina to expose the vaginal cuff. Two [id number] were placed to imbricate the exposed edge of the vaginal cuff in the right corner using 0 Vicryl. Excellent hemostasis was noted after suture placement. All instruments were removed. The patient tolerated the procedure well. Sponge, lap and needle counts were correct x 2. Debrief performed per protocol. The patient was taken to the recovery room in stable condition.
[2024-01-01 14:30] VITALS: BP 108/76; PULSE 56; RESP 14; O2SAT 97
[2024-01-01] MEDS: OXYCODONE 5 MG TABLET PO (14:41)
[2024-01-01 14:45] VITALS: BP 127/81; PULSE 69; RESP 16; O2SAT 98
== END 2024-01-01 15:15 | disposition home or self-care (01) ==
LOC: ED 13:13 → OR 13:35
PROVIDERS: Emergency Provider Family Medicine; PCP Nurse Practitioner Family; Visit Provider Obstetrics & Gynecology
PROC: 0UQG0ZZ Repair Vagina, Open Approach (ICD-10-PCS; CPT 58999; principal; 2024-01-01 13:30)
DX: T81.31XA Disruption of external operation (surgical) wound, not elsewhere classified, initial encounter (principal); N99.820 Postprocedural hemorrhage of a genitourinary system organ or structure following a genitourinary system procedure; Z90.710 Acquired absence of both cervix and uterus
CPT/HCPCS: 58999; 00940; 36415; 80048; 83605; 85025; 86140; 99140; 99284; 99285; A9270; J1100; J2250; J2405; J2704; J7120

== ENCOUNTER 2024-06-13 13:45 | Outpatient (CLI) | payer OTHER, SELFPAY | END 2024-06-13 13:46 | disposition home or self-care (01) | PROVIDERS: PCP Nurse Practitioner Family; Visit Provider Nurse Practitioner Family | DX: R42 Dizziness and giddiness (principal); H53.8 Other visual disturbances; E01.0 Iodine-deficiency related diffuse (endemic) goiter; N93.9 Abnormal uterine and vaginal bleeding, unspecified; R10.2 Pelvic and perineal pain | CPT/HCPCS: 80053; 83001; 84443; 85025 ==

== ENCOUNTER 2024-10-14 10:47 | Outpatient (CLI) | payer OTHER, SELFPAY ==
--- NOTE | 2024-10-14 10:45 | CRLHL7_ITS ---
For Patients: As a result of the Cures Act, medical imaging exams and procedure reports are released immediately into your electronic medical record. You may view this report before your referring provider. If you have questions, please contact your health care provider. INDICATION: Thyroid nodule COMPARISON: 10/14/2023 TECHNIQUE: Mejia scale and color Doppler images were acquired of the thyroid gland. FINDINGS: Solid and cystic nodule upper pole left thyroid lobe measures 6 x 4 x 5 millimeters, TR 3, previously measuring 4 x 3 x 4 millimeters. Solid and cystic nodule left thyroid lobe measures 18 x 8 x 11 millimeters, previously measuring 17 x 9 x 10 millimeters, TR 3. Solid and cystic nodule right thyroid lobe measures 10 x 7 x 8 millimeters, TR 3, previously measuring 9 x 5 x 6 millimeters. Additional solid and cystic nodule right thyroid lobe measures 15 x 11 x 12 millimeters, previously measuring 14 x 8 x 12 millimeters, TR 3. Other smaller nodules are present elsewhere bilaterally. Isthmus measures 2.5 millimeters. The right lobe measures 5.4 x 1.3 x 2.1 cm and the left lobe measures 5.4 x 1.1 x 1.9 cm in size. The color Doppler images demonstrate mildly increased vascularity. There is no evidence of cervical lymphadenopathy or parathyroid mass. IMPRESSION: Similar bilateral thyroid nodules. FNA not indicated at this time. Dictated by Jeff Whitaker MD @ 10/15/2024 1:59:20 PM (Electronically Signed)
== END 2024-10-14 10:48 | disposition home or self-care (01) ==
LOC: US 10:48
PROVIDERS: PCP Nurse Practitioner Family; Visit Provider Nurse Practitioner Family
DX: E04.1 Nontoxic single thyroid nodule (principal)
CPT/HCPCS: 76536